=== PATIENT | female | born 1960 | race Caucasian/White ===

== ENCOUNTER → 2017-06-27 | Outpatient (CLI) | payer BC | LOC: CARDREHAB 09:13 | DX: R07.9 Chest pain, unspecified (principal); E11.9 Type 2 diabetes mellitus without complications; F17.200 Nicotine dependence, unspecified, uncomplicated ==

== ENCOUNTER → 2017-09-12 | Outpatient (CLI) | payer BC | LOC: CARDREHAB 08:14 → CARDLAB 13:41 | DX: R55 Syncope and collapse (principal); R42 Dizziness and giddiness | CPT/HCPCS: A9500 ==

== ENCOUNTER → 2017-10-07 | Outpatient (CLI) | payer BC | LOC: RAD 08:26 | DX: I65.23 Occlusion and stenosis of bilateral carotid arteries (principal); E07.9 Disorder of thyroid, unspecified | CPT/HCPCS: Q9967 ==

== ENCOUNTER → 2018-06-17 | Outpatient (CLI) | payer BC ==
[2018-06-17 16:14] LABS: BASO # 0.1 (0.02-0.10); EOS # 0.2 (0.04-0.40); EOS % 2.8 % (1.0-5.0); HEMATOCRIT 35.5 % (37.0-47.0); HEMOGLOBIN 11.3 g/dL (12.5-16.0); LYMPH# 2.7 (1.50-4.00); MEAN CELL VOLUME 92 fl (78-100); MEAN CORPUSCULAR HEMOGLOBIN 29 pg (27-31); MEAN CORPUSCULAR HGB CONC 32 g/dL (33-37); MEAN PLATELET VOLUME 10.7 fl (7.4-10.4); MONO # 0.5 (0.20-0.80); NEU # 3.6 (1.40-6.50); PLATELET COUNT 329 K/mm3 (130-400); RED BLOOD COUNT 3.84 M/mm3 (4.10-5.30); RED CELL DISTRIBUTION WIDTH 14.6 % (11.5-14.5)
[2018-06-17 17:31] LABS: ALBUMIN 3.9 g/dL (3.5-5.0); CALCIUM 9.7 mg/dL (8.4-10.2); POTASSIUM 3.9 mmol/L (3.6-5.0); TOTAL BILIRUBIN 0.2 mg/dL (0.2-1.3)
== END ==
LOC: LAB 15:27
PROVIDERS: Family Medicine
DX: Z01.419 Encounter for gynecological examination (general) (routine) without abnormal findings (principal); E55.9 Vitamin D deficiency, unspecified

== ENCOUNTER 2019-04-28 16:05 | Emergency (ER) | payer BC ==
[2019-04-28] MEDS ORDERED: METFORMIN HYDR750 MG PO (16:21)
[2019-04-28] MEDS ORDERED: MIDODRINE HCL10 MG PO (16:22)
[2019-04-28] MEDS ORDERED: CLOPIDOGREL PO (16:22)
[2019-04-28] MEDS ORDERED: ASPIRIN E.C. 8181 MG PO (16:23)
[2019-04-28] MEDS ORDERED: MULTI VITAMINS1 TAB PO (16:23)
[2019-04-28 16:48] LABS: BASO # 0.1 (0.02-0.10); EOS # 0.1 (0.04-0.40); EOS % 1.6 % (1.0-5.0); HEMATOCRIT 37.5 % (37.0-47.0); HEMOGLOBIN 11.8 g/dL (12.5-16.0); LYMPH# 2.4 (1.50-4.00); MEAN CELL VOLUME 96 fl (78-100); MEAN CORPUSCULAR HEMOGLOBIN 30 pg (27-31); MEAN CORPUSCULAR HGB CONC 32 g/dL (33-37); MEAN PLATELET VOLUME 10.4 fl (7.4-10.4); MONO # 0.7 (0.20-0.80); NEU # 5.3 (1.40-6.50); PLATELET COUNT 424 K/mm3 (130-400); RED BLOOD COUNT 3.92 M/mm3 (4.10-5.30); RED CELL DISTRIBUTION WIDTH 13.8 % (11.5-14.5); WHITE BLOOD COUNT 8.6 K/mm3 (4.8-10.8)
[2019-04-28 16:59] LABS: ALBUMIN 3.2 g/dL (3.4-4.8)
[2019-04-28 17:00] LABS: POTASSIUM 4.1 mmol/L (3.5-5.1)
[2019-04-28 17:01] LABS: CALCIUM 9.3 mg/dL (8.3-10.5)
[2019-04-28 17:02] LABS: TOTAL PROTEIN 6.7 g/dL (6.2-8.1)
[2019-04-28 17:04] LABS: TOTAL BILIRUBIN 0.2 mg/dL (0.2-1.2)
[2019-04-28 17:14] LABS: TROPONIN-I 0.03 ng/mL (<0.030)
[2019-04-28 17:16] LABS: D-DIMER 1.07 mg/L FEU (0.15-0.50)
[2019-04-28 18:00] LABS: URINE APPEARANCE CLOUDY; URINE BILIRUBIN NEGATIVE (NEGATIVE); URINE BLOOD TRACE (NEGATIVE); URINE COLOR YELLOW; URINE GLUCOSE NEGATIVE (NEGATIVE); URINE KETONE NEGATIVE (NEGATIVE); URINE LEUKOCYTE ESTERASE 2+ (NEGATIVE); URINE NITRATE NEGATIVE (NEGATIVE); URINE PROTEIN(semi-quant) 3+ mg/dL (NEGATIVE); URINE UROBILINOGEN NORMAL (NORMAL)
[2019-04-28 18:01] LABS: URINE WBC >50 /hpf (0-3)
[2019-04-28 19:24] VITALS: BP 180/91
== END 2019-04-28 20:28 | disposition short-term general hospital (02) ==
LOC: ED 16:05
PROVIDERS: Physician Assistant
DX: I50.9 Heart failure, unspecified (principal); N39.0 Urinary tract infection, site not specified; N28.9 Disorder of kidney and ureter, unspecified; I25.10 Atherosclerotic heart disease of native coronary artery without angina pectoris; E11.9 Type 2 diabetes mellitus without complications; F17.210 Nicotine dependence, cigarettes, uncomplicated; I73.9 Peripheral vascular disease, unspecified; Z79.84 Long term (current) use of oral hypoglycemic drugs; Z90.49 Acquired absence of other specified parts of digestive tract; Z95.5 Presence of coronary angioplasty implant and graft; Z98.51 Tubal ligation status; Z79.02 Long term (current) use of antithrombotics/antiplatelets; Z79.82 Long term (current) use of aspirin
CPT/HCPCS: J1940; Q9967

== ENCOUNTER → 2019-05-17 | Outpatient (CLI) | payer BC ==
[2019-04-28 19:24] VITALS: BP 180/91
[~2019-05-17] MED LIST: ASPIRIN E.C. 8181 MG PO; CLOPIDOGREL PO; METFORMIN HYDR750 MG PO; MIDODRINE HCL10 MG PO; MULTI VITAMINS1 TAB PO
[2019-05-17 09:55] LABS: BASO # 0.1 (0.02-0.10); EOS # 0.2 (0.04-0.40); EOS % 2.3 % (1.0-5.0); HEMATOCRIT 34.1 % (37.0-47.0); HEMOGLOBIN 10.7 g/dL (12.5-16.0); MEAN CELL VOLUME 96 fl (78-100); MEAN CORPUSCULAR HEMOGLOBIN 30 pg (27-31); MEAN CORPUSCULAR HGB CONC 31 g/dL (33-37); MEAN PLATELET VOLUME 10.7 fl (7.4-10.4); MONO # 0.6 (0.20-0.80); NEU # 5.5 (1.40-6.50); PLATELET COUNT 427 K/mm3 (130-400); RED BLOOD COUNT 3.55 M/mm3 (4.10-5.30); RED CELL DISTRIBUTION WIDTH 12.4 % (11.5-14.5); WHITE BLOOD COUNT 8.4 K/mm3 (4.8-10.8)
[2019-05-17 10:10] LABS: ALBUMIN 3.1 g/dL (3.4-4.8)
[2019-05-17 10:11] LABS: POTASSIUM 4.4 mmol/L (3.5-5.1)
[2019-05-17 10:12] LABS: CALCIUM 9.3 mg/dL (8.3-10.5)
[2019-05-17 10:13] LABS: TOTAL PROTEIN 6.7 g/dL (6.2-8.1)
[2019-05-17 10:15] LABS: TOTAL BILIRUBIN 0.2 mg/dL (0.2-1.2)
== END ==
LOC: LAB 09:30
PROVIDERS: Family Medicine
DX: I25.10 Atherosclerotic heart disease of native coronary artery without angina pectoris (principal); I50.9 Heart failure, unspecified; N18.9 Chronic kidney disease, unspecified

== ENCOUNTER 2019-08-11 09:00 | Outpatient (RCR) | payer BC ==
[2019-08-13] MEDS ORDERED: METOPROLOL SUCC25 M1 PO (13:50)
[2019-08-13] MEDS ORDERED: LANTUS SOLOS100 U/ML SQ (13:51)
[2019-08-13] MEDS ORDERED: ATORVASTATIN CA80 MG PO (13:52)
[2019-08-15] MEDS ORDERED: CEPHALEXIN500 M1 PO (15:43)
== END 2019-08-22 | disposition still patient (30) ==
LOC: CARDREHAB
DX: Z48.812 Encounter for surgical aftercare following surgery on the circulatory system (principal); I50.21 Acute systolic (congestive) heart failure; E11.51 Type 2 diabetes mellitus with diabetic peripheral angiopathy without gangrene; N18.9 Chronic kidney disease, unspecified; E11.22 Type 2 diabetes mellitus with diabetic chronic kidney disease; I25.10 Atherosclerotic heart disease of native coronary artery without angina pectoris; N39.0 Urinary tract infection, site not specified; J90 Pleural effusion, not elsewhere classified; E78.5 Hyperlipidemia, unspecified; Z72.0 Tobacco use; Z95.5 Presence of coronary angioplasty implant and graft

== ENCOUNTER 2019-08-13 11:17 | Inpatient (IN) | payer BC ==
[~2019-08-13] VITALS: Ht 160 cm; Wt 61.0 kg
[~2019-08-13 11:17] MED LIST changes: -ATORVASTATIN CA80 MG PO; -CEPHALEXIN500 M1 PO; -LANTUS SOLOS100 U/ML SQ; -METOPROLOL SUCC25 M1 PO
[2019-08-13 13:23] VITALS: BP 116/69
[2019-08-13 13:47] VITALS: BP 118/70
[2019-08-13] MEDS ORDERED: METOPROLOL SUCC25 M1 PO (13:50)
[2019-08-13] MEDS ORDERED: LANTUS SOLOS100 U/ML SQ (13:51)
[2019-08-13] MEDS ORDERED: ATORVASTATIN CA80 MG PO (13:52)
[2019-08-13 18:14] VITALS: BP 183/70
[2019-08-13 22:08] VITALS: BP 181/78
[2019-08-14] VITALS (8 sets, daily range): BP systolic 134–197; BP diastolic 57–83
[2019-08-14 06:57] LABS: BASO # 0.1 (0.02-0.10); EOS # 0.1 (0.04-0.40); EOS % 1.2 % (1.0-5.0); LYMPH# 2.4 (1.50-4.00); MEAN CELL VOLUME 91 fl (78-100); MEAN CORPUSCULAR HEMOGLOBIN 28 pg (27-31); MEAN CORPUSCULAR HGB CONC 30 g/dL (33-37); MEAN PLATELET VOLUME 10.6 fl (7.4-10.4); MONO # 0.7 (0.20-0.80); NEU # 6.6 (1.40-6.50); PLATELET COUNT 499 K/mm3 (130-400); RED BLOOD COUNT 2.86 M/mm3 (4.10-5.30); RED CELL DISTRIBUTION WIDTH 13.7 % (11.5-14.5)
[2019-08-14 06:59] LABS: HEMOGLOBIN 7.9 g/dL (12.5-16.0)
[2019-08-14 07:08] LABS: POTASSIUM 4.1 mmol/L (3.5-5.1)
[2019-08-14 07:09] LABS: CALCIUM 8.6 mg/dL (8.3-10.5)
[2019-08-15 03:00] VITALS: BP 170/70
[2019-08-15 06:26] VITALS: BP 170/71
[2019-08-15 09:47] VITALS: BP 124/80
[2019-08-15 11:14] LABS: BASO # 0.1 (0.02-0.10); EOS # 0.3 (0.04-0.40); EOS % 3.1 % (1.0-5.0); HEMATOCRIT 27.8 % (37.0-47.0); HEMOGLOBIN 8.3 g/dL (12.5-16.0); LYMPH# 2.4 (1.50-4.00); MEAN CELL VOLUME 91 fl (78-100); MEAN CORPUSCULAR HEMOGLOBIN 27 pg (27-31); MEAN CORPUSCULAR HGB CONC 30 g/dL (33-37); MEAN PLATELET VOLUME 10.5 fl (7.4-10.4); MONO # 0.6 (0.20-0.80); NEU # 7.1 (1.40-6.50); PLATELET COUNT 522 K/mm3 (130-400); RED BLOOD COUNT 3.04 M/mm3 (4.10-5.30); RED CELL DISTRIBUTION WIDTH 13.8 % (11.5-14.5); WHITE BLOOD COUNT 10.4 K/mm3 (4.8-10.8)
[2019-08-15 11:26] LABS: POTASSIUM 4.7 mmol/L (3.5-5.1)
[2019-08-15 11:27] LABS: CALCIUM 8.9 mg/dL (8.3-10.5)
[2019-08-15 14:05] VITALS: BP 134/81
[2019-08-15] MEDS ORDERED: CEPHALEXIN500 M1 PO (15:43)
[2019-08-15 16:12] VITALS: BP 111/76
== END 2019-08-15 16:21 | disposition home or self-care (01) | DRG 683 ==
LOC: MED/SURG 11:17
PROVIDERS: Family Medicine; ADMIT Physician Assistant
DX: N17.9 Acute kidney failure, unspecified (principal); N39.0 Urinary tract infection, site not specified; I50.9 Heart failure, unspecified; E11.51 Type 2 diabetes mellitus with diabetic peripheral angiopathy without gangrene; N18.9 Chronic kidney disease, unspecified; I25.10 Atherosclerotic heart disease of native coronary artery without angina pectoris; E11.9 Type 2 diabetes mellitus without complications; D63.1 Anemia in chronic kidney disease; I65.23 Occlusion and stenosis of bilateral carotid arteries; B96.20 Unspecified Escherichia coli [E. coli] as the cause of diseases classified elsewhere; F17.210 Nicotine dependence, cigarettes, uncomplicated; Z79.82 Long term (current) use of aspirin; Z95.5 Presence of coronary angioplasty implant and graft
CPT/HCPCS: A4216; J0696; J1815; J1940; J7030

== ENCOUNTER → 2019-08-13 | Outpatient (CLI) | payer BC ==
[~2019-08-13] MED LIST changes: +ATORVASTATIN CA80 MG PO; +CEPHALEXIN500 M1 PO; +LANTUS SOLOS100 U/ML SQ; +METOPROLOL SUCC25 M1 PO
[2019-08-13 09:17] LABS: BASO # 0.1 (0.02-0.10); EOS # 0.3 (0.04-0.40); EOS % 2.3 % (1.0-5.0); HEMATOCRIT 28.8 % (37.0-47.0); HEMOGLOBIN 8.7 g/dL (12.5-16.0); LYMPH# 2.8 (1.50-4.00); MEAN CELL VOLUME 92 fl (78-100); MEAN CORPUSCULAR HEMOGLOBIN 28 pg (27-31); MEAN CORPUSCULAR HGB CONC 30 g/dL (33-37); MEAN PLATELET VOLUME 10.2 fl (7.4-10.4); NEU # 7.7 (1.40-6.50); RED BLOOD COUNT 3.14 M/mm3 (4.10-5.30); RED CELL DISTRIBUTION WIDTH 13.6 % (11.5-14.5)
[2019-08-13 09:29] LABS: PLATELET COUNT 526 K/mm3 (130-400)
[2019-08-13 09:31] LABS: ALBUMIN 2.8 g/dL (3.4-4.8)
[2019-08-13 09:32] LABS: POTASSIUM 4.4 mmol/L (3.5-5.1)
[2019-08-13 09:33] LABS: CALCIUM 9.2 mg/dL (8.3-10.5)
[2019-08-13 09:34] LABS: TOTAL PROTEIN 6.9 g/dL (6.2-8.1)
[2019-08-13 09:36] LABS: TOTAL BILIRUBIN 0.2 mg/dL (0.2-1.2)
[2019-08-13 09:37] LABS: URINE APPEARANCE CLOUDY; URINE BILIRUBIN NEGATIVE (NEGATIVE); URINE BLOOD 250 ery/uL (NEGATIVE); URINE COLOR YELLOW; URINE KETONE NEGATIVE (NEGATIVE); URINE LEUKOCYTE ESTERASE 2+ (NEGATIVE); URINE NITRATE POSITIVE (NEGATIVE); URINE PROTEIN(semi-quant) 3+ mg/dL (NEGATIVE); URINE UROBILINOGEN NORMAL (NORMAL); URINE WBC >50 /hpf (0-3)
[2019-08-13 09:57] LABS: D-DIMER 1.44 mg/L FEU (0.15-0.50)
== END ==
LOC: LAB 08:53 → EDSTATUS 08:56
PROVIDERS: Physician Assistant
DX: I50.9 Heart failure, unspecified (principal)

== ENCOUNTER → 2019-08-25 | Outpatient (CLI) | payer BC ==
[2019-08-15 16:12] VITALS: BP 111/76
[~2019-08-25] MED LIST changes: +ATORVASTATIN CA80 MG PO; +CEPHALEXIN500 M1 PO; +LANTUS SOLOS100 U/ML SQ; +METOPROLOL SUCC25 M1 PO
[2019-08-25 09:50] LABS: BASO # 0.1 (0.02-0.10); EOS # 0.4 (0.04-0.40); EOS % 4.6 % (1.0-5.0); HEMATOCRIT 27.8 % (37.0-47.0); HEMOGLOBIN 8.3 g/dL (12.5-16.0); LYMPH# 2.4 (1.50-4.00); MEAN CELL VOLUME 92 fl (78-100); MEAN CORPUSCULAR HEMOGLOBIN 28 pg (27-31); MEAN CORPUSCULAR HGB CONC 30 g/dL (33-37); MEAN PLATELET VOLUME 10.2 fl (7.4-10.4); MONO # 0.6 (0.20-0.80); NEU # 4.4 (1.40-6.50); PLATELET COUNT 453 K/mm3 (130-400); RED BLOOD COUNT 3.01 M/mm3 (4.10-5.30); RED CELL DISTRIBUTION WIDTH 14.9 % (11.5-14.5); WHITE BLOOD COUNT 7.8 K/mm3 (4.8-10.8)
[2019-08-25 10:01] LABS: POTASSIUM 4.7 mmol/L (3.5-5.1)
[2019-08-25 10:02] LABS: CALCIUM 8.4 mg/dL (8.3-10.5)
[2019-08-25 10:05] LABS: TOTAL BILIRUBIN 0.2 mg/dL (0.2-1.2)
== END ==
LOC: LAB 09:35
PROVIDERS: Family Medicine
DX: E11.22 Type 2 diabetes mellitus with diabetic chronic kidney disease (principal); N18.9 Chronic kidney disease, unspecified

== ENCOUNTER → 2019-12-31 | Outpatient (CLI) | payer BC ==
[2019-12-31 11:52] LABS: ALBUMIN 3.2 g/dL (3.4-4.8); POTASSIUM 4.3 mmol/L (3.5-5.1)
[2019-12-31 11:55] LABS: TOTAL PROTEIN 6.7 g/dL (6.2-8.1)
[2019-12-31 11:57] LABS: TOTAL BILIRUBIN 0.2 mg/dL (0.2-1.2)
== END ==
LOC: LAB 11:20
PROVIDERS: Family Medicine
DX: E11.22 Type 2 diabetes mellitus with diabetic chronic kidney disease (principal); N18.9 Chronic kidney disease, unspecified

== ENCOUNTER → 2020-02-02 | Outpatient (CLI) | payer BC | LOC: RAD 08:55 | DX: N18.4 Chronic kidney disease, stage 4 (severe) (principal); N13.30 Unspecified hydronephrosis ==

== ENCOUNTER → 2020-02-24 | Outpatient (CLI) | payer BC ==
[2020-02-24 10:10] LABS: BASO # 0.1 (0.02-0.10); EOS # 0.6 (0.04-0.40); EOS % 7.5 % (1.0-5.0); HEMATOCRIT 32.2 % (37.0-47.0); HEMOGLOBIN 9.9 g/dL (12.5-16.0); LYMPH# 2.3 (1.50-4.00); MEAN CELL VOLUME 95 fl (78-100); MEAN CORPUSCULAR HEMOGLOBIN 29 pg (27-31); MEAN CORPUSCULAR HGB CONC 31 g/dL (33-37); MEAN PLATELET VOLUME 11.4 fl (7.4-10.4); MONO # 0.7 (0.20-0.80); NEU # 3.8 (1.40-6.50); PLATELET COUNT 347 K/mm3 (130-400); RED BLOOD COUNT 3.39 M/mm3 (4.10-5.30); RED CELL DISTRIBUTION WIDTH 13.7 % (11.5-14.5); WHITE BLOOD COUNT 7.5 K/mm3 (4.8-10.8)
[2020-02-24 10:14] LABS: POTASSIUM 3.9 mmol/L (3.5-5.1)
[2020-02-24 10:15] LABS: CALCIUM 8.5 mg/dL (8.3-10.5)
[2020-02-24 10:16] LABS: TOTAL PROTEIN 6.5 g/dL (6.2-8.1)
[2020-02-24 10:18] LABS: TOTAL BILIRUBIN 0.2 mg/dL (0.2-1.2)
[2020-02-24 11:48] LABS: PH-URINE 6.5 (5.0 - 8.0); URINE APPEARANCE CLOUDY; URINE BILIRUBIN NEGATIVE (NEGATIVE); URINE BLOOD 250 ery/uL (NEGATIVE); URINE COLOR YELLOW; URINE GLUCOSE 50 mg/dL mg/dL (NEGATIVE); URINE KETONE NEGATIVE (NEGATIVE); URINE LEUKOCYTE ESTERASE 2+ (NEGATIVE); URINE MUCUS PRESENT (NOT PRESENT); URINE NITRATE POSITIVE (NEGATIVE); URINE PROTEIN(semi-quant) 3+ mg/dL (NEGATIVE); URINE UROBILINOGEN NORMAL (NORMAL); URINE WBC >50 /hpf (0-3)
== END ==
LOC: LAB 08:32
PROVIDERS: Internal Medicine Nephrology
DX: E11.22 Type 2 diabetes mellitus with diabetic chronic kidney disease (principal); D63.1 Anemia in chronic kidney disease; N18.4 Chronic kidney disease, stage 4 (severe); I50.9 Heart failure, unspecified

== ENCOUNTER → 2020-05-30 | Outpatient (CLI) | payer BC ==
[2020-05-30 09:04] LABS: CALCIUM 8.8 mg/dL (8.3-10.5)
== END ==
LOC: LAB 08:27
PROVIDERS: Family Medicine
DX: E78.5 Hyperlipidemia, unspecified (principal); I65.29 Occlusion and stenosis of unspecified carotid artery; I25.10 Atherosclerotic heart disease of native coronary artery without angina pectoris; E11.22 Type 2 diabetes mellitus with diabetic chronic kidney disease; I12.9 Hypertensive chronic kidney disease with stage 1 through stage 4 chronic kidney disease, or unspecified chronic kidney disease; N18.4 Chronic kidney disease, stage 4 (severe)

== ENCOUNTER → 2020-06-02 | Outpatient (CLI) | payer BC ==
[2020-06-03 00:01] LABS: HEPATITIS C VIRUS ANTIBODY Negative (Negative)
[2020-06-03 00:59] LABS: COMPLEMENT C3 136 mg/dL (83-193); COMPLEMENT-C4 35 mg/dL (15-57)
[2020-06-04 13:53] LABS: ANA SCREEN with REFLEX Negative (Negative)
[2020-06-05 08:18] LABS: KAPPA LAMBDA RATIO 1.09 ratio (())
== END ==
LOC: LAB 14:38
PROVIDERS: Internal Medicine Nephrology
DX: N13.30 Unspecified hydronephrosis (principal); N04.9 Nephrotic syndrome with unspecified morphologic changes; N18.4 Chronic kidney disease, stage 4 (severe)

== ENCOUNTER → 2020-08-15 | Outpatient (CLI) | payer BC ==
[2020-08-15 09:50] LABS: ALBUMIN 3.1 g/dL (3.4-4.8)
[2020-08-15 09:51] LABS: POTASSIUM 4.3 mmol/L (3.5-5.1)
[2020-08-15 09:52] LABS: CALCIUM 8.6 mg/dL (8.3-10.5)
== END ==
LOC: LAB 09:06
PROVIDERS: Internal Medicine Nephrology
DX: N04.9 Nephrotic syndrome with unspecified morphologic changes (principal); E11.22 Type 2 diabetes mellitus with diabetic chronic kidney disease; N13.30 Unspecified hydronephrosis; N18.4 Chronic kidney disease, stage 4 (severe); D63.1 Anemia in chronic kidney disease; I50.9 Heart failure, unspecified

== ENCOUNTER → 2020-12-07 | Outpatient (CLI) | payer BC ==
[2020-12-07 08:29] LABS: ALBUMIN 3.5 g/dL (3.4-4.8); POTASSIUM 4.1 mmol/L (3.5-5.1)
[2020-12-07 08:31] LABS: CALCIUM 8.9 mg/dL (8.3-10.5)
== END ==
LOC: LAB 08:05
PROVIDERS: Internal Medicine Nephrology
DX: N04.9 Nephrotic syndrome with unspecified morphologic changes (principal); N13.30 Unspecified hydronephrosis; N18.4 Chronic kidney disease, stage 4 (severe); I50.9 Heart failure, unspecified; D63.1 Anemia in chronic kidney disease; E11.22 Type 2 diabetes mellitus with diabetic chronic kidney disease

== ENCOUNTER → 2021-04-09 | Outpatient (REF) | LOC: LAB 08:44 → EDSTATUS 08:52 | DX: N04.9 Nephrotic syndrome with unspecified morphologic changes (principal); N13.30 Unspecified hydronephrosis; D63.1 Anemia in chronic kidney disease; E11.22 Type 2 diabetes mellitus with diabetic chronic kidney disease; I13.0 Hypertensive heart and chronic kidney disease with heart failure and stage 1 through stage 4 chronic kidney disease, or unspecified chronic kidney disease; N18.4 Chronic kidney disease, stage 4 (severe); I50.9 Heart failure, unspecified ==

== ENCOUNTER → 2022-05-08 | Outpatient (CLI) | payer BC ==
[2022-05-08 10:14] LABS: BASO # 0.03 K/mm3 (0.02-0.10); EOS # 0.04 K/mm3 (0.04-0.40); EOS % 0.6 % (1.0-5.0); HEMOGLOBIN 10.9 g/dL (12.5-16.0); LYMPH# 1.68 K/mm3 (1.50-4.00); MEAN CELL VOLUME 96 fl (78-100); MEAN CORPUSCULAR HEMOGLOBIN 31 pg (27-31); MEAN CORPUSCULAR HGB CONC 32 g/dL (33-37); MEAN PLATELET VOLUME 10.5 fl (7.4-10.4); MONO # 0.37 K/mm3 (0.20-0.80); NEU # 4.43 K/mm3 (1.40-6.50); PLATELET COUNT 249 K/mm3 (130-400); RED BLOOD COUNT 3.54 M/mm3 (4.10-5.30); WHITE BLOOD COUNT 6.6 K/mm3 (4.8-10.8)
[2022-05-08 10:20] LABS: ALBUMIN 3.5 g/dL (3.4-4.8); POTASSIUM 4.3 mmol/L (3.5-5.1)
[2022-05-08 10:21] LABS: CALCIUM 9.2 mg/dL (8.3-10.5)
[2022-05-08 10:22] LABS: TOTAL PROTEIN 6.6 g/dL (6.2-8.1)
[2022-05-08 10:24] LABS: TOTAL BILIRUBIN 0.3 mg/dL (0.2-1.2)
[2022-05-09 07:58] LABS: KAPPA LAMBDA RATIO 1.33 ratio (())
== END ==
LOC: LAB 09:57
PROVIDERS: Family Medicine
DX: Z00.00 Encounter for general adult medical examination without abnormal findings (principal); C90.00 Multiple myeloma not having achieved remission; I65.29 Occlusion and stenosis of unspecified carotid artery; N18.9 Chronic kidney disease, unspecified; D64.9 Anemia, unspecified; E78.5 Hyperlipidemia, unspecified; E11.9 Type 2 diabetes mellitus without complications; Z72.0 Tobacco use

== ENCOUNTER → 2023-04-16 | Outpatient (CLI) | payer MEDICARE ==
[2023-04-16 09:26] LABS: POTASSIUM 4.4 mmol/L (3.5-5.1)
[2023-04-16 09:27] LABS: CALCIUM 8.7 mg/dL (8.3-10.5)
== END ==
LOC: LAB 08:59
PROVIDERS: Internal Medicine Nephrology
DX: N18.5 Chronic kidney disease, stage 5 (principal); D63.1 Anemia in chronic kidney disease

== ENCOUNTER → 2023-05-13 | Outpatient (CLI) | payer MEDICARE ==
[2023-05-13 09:50] LABS: BASO # 0.07 K/mm3 (0.02-0.10); EOS # 0.09 K/mm3 (0.04-0.40); EOS % 1.3 % (1.0-5.0); HEMATOCRIT 29.7 % (37.0-47.0); HEMOGLOBIN 9.5 g/dL (12.5-16.0); MEAN CELL VOLUME 99 fl (78-100); MEAN CORPUSCULAR HEMOGLOBIN 32 pg (27-31); MEAN CORPUSCULAR HGB CONC 32 g/dL (33-37); MEAN PLATELET VOLUME 9.8 fl (7.4-10.4); MONO # 0.43 K/mm3 (0.20-0.80); NEU # 4.43 K/mm3 (1.40-6.50); PLATELET COUNT 243 K/mm3 (130-400); RED BLOOD COUNT 2.99 M/mm3 (4.10-5.30); RED CELL DISTRIBUTION WIDTH 12.8 % (11.5-14.5); WHITE BLOOD COUNT 6.9 K/mm3 (4.8-10.8)
[2023-05-13 10:01] LABS: ALBUMIN 3.3 g/dL (3.4-4.8)
[2023-05-13 10:02] LABS: CALCIUM 8.4 mg/dL (8.3-10.5)
[2023-05-13 10:03] LABS: TOTAL PROTEIN 6.2 g/dL (6.2-8.1)
[2023-05-13 10:05] LABS: TOTAL BILIRUBIN 0.2 mg/dL (0.2-1.2)
== END ==
LOC: LAB 09:21
PROVIDERS: Family Medicine
DX: Z00.00 Encounter for general adult medical examination without abnormal findings (principal); N18.9 Chronic kidney disease, unspecified; E78.5 Hyperlipidemia, unspecified; I65.29 Occlusion and stenosis of unspecified carotid artery; E11.9 Type 2 diabetes mellitus without complications; D64.9 Anemia, unspecified; Z72.0 Tobacco use

== ENCOUNTER → 2023-06-17 | Outpatient (CLI) | payer MEDICARE ==
[2023-06-17 09:06] LABS: CALCIUM 8.5 mg/dL (8.3-10.5)
== END ==
LOC: LAB 08:40
PROVIDERS: Internal Medicine Nephrology
DX: N18.5 Chronic kidney disease, stage 5 (principal); D63.1 Anemia in chronic kidney disease

== ENCOUNTER → 2024-03-27 | Outpatient (CLI) | payer MEDICARE | LOC: RAD 06:58 | DX: I34.81 Nonrheumatic mitral (valve) annulus calcification (principal); I31.39 Other pericardial effusion (noninflammatory); I95.9 Hypotension, unspecified ==

== ENCOUNTER → 2024-05-28 | Outpatient (CLI) | payer MEDICARE ==
[2024-05-28 07:24] LABS: BASO # 0.04 K/mm3 (0.02-0.10); EOS # 0.09 K/mm3 (0.04-0.40); EOS % 1.2 % (1.0-5.0); HEMATOCRIT 35.2 % (37.0-47.0); HEMOGLOBIN 11.5 g/dL (12.5-16.0); LYMPH# 1.45 K/mm3 (1.50-4.00); MEAN CELL VOLUME 98 fl (78-100); MEAN CORPUSCULAR HEMOGLOBIN 32 pg (27-31); MEAN CORPUSCULAR HGB CONC 33 g/dL (33-37); MEAN PLATELET VOLUME 10.7 fl (7.4-10.4); MONO # 0.48 K/mm3 (0.20-0.80); NEU # 5.26 K/mm3 (1.40-6.50); PLATELET COUNT 293 K/mm3 (130-400); RED BLOOD COUNT 3.59 M/mm3 (4.10-5.30); RED CELL DISTRIBUTION WIDTH 13.4 % (11.5-14.5); WHITE BLOOD COUNT 7.3 K/mm3 (4.8-10.8)
[2024-05-28 07:31] LABS: ALBUMIN 3.3 g/dL (3.4-4.8)
== END ==
LOC: LAB 07:05
PROVIDERS: Internal Medicine Nephrology
DX: N18.5 Chronic kidney disease, stage 5 (principal); D63.1 Anemia in chronic kidney disease

== ENCOUNTER 2024-06-22 17:02 | Emergency (ER) | payer MEDICARE ==
[~2024-06-22] VITALS: Ht 154.9 cm; Wt 71.8 kg
[2024-06-22] MEDS ORDERED: EZETIMIBE10 M1 PO (17:11)
[2024-06-22 18:06] VITALS: BP 155/68
== END 2024-06-22 18:20 | disposition home or self-care (01) ==
LOC: ED 17:02
DX: L76.22 Postprocedural hemorrhage of skin and subcutaneous tissue following other procedure (principal); Z79.02 Long term (current) use of antithrombotics/antiplatelets; Z79.82 Long term (current) use of aspirin